=== PATIENT | female | born 1965 | race Caucasian/White ===

== ENCOUNTER 2018-03-20 13:05 | Inpatient (IN) | payer OTHER ==
[2018-03-20 13:10] VITALS: BMI 24.4
[2018-03-20] MEDS ORDERED: SODIUM CHLORIDE 1,000 ML IV SCH (14:15)
--- NOTE | 2018-03-20 14:20 | PDOC ---
History of Present Illness - General Chief Complaint: Head/Neck problem Stated Complaint: BITE Time Seen by Provider: 03/20/18 13:38 History Source: Patient, Family Exam Limitations: Language Barrier - History of Present Illness Initial Comments: 03/20/18 14:16 52F with PMH of diet controlled DM and HLD, not on any meds who presents to the ED from her doctor's office with concern for meningitis. About 2 weeks ago the patient noted a bug bite on her right side/abdominal area. Within a few days it progressed to a severe headache with head pressure associated with neck stiffness, tongue numbness, nausea, body aches and pains, and right sided large red rash. She denies photophobia. The patient's daughter explains on the way to the hospital the patient started to complain about a heavy left eye lid. During the HPI. I also noticed left facial droopiness and a code lambert was called. She denies fever (temp taken by daughter last night 99.6 oral) but endorses chills. She did not tell anyone in her family about her illness until yesterday. Her daughter does not see her too much because she works a lot. She denies recent travel or sick contacts. [place] near [place]ed areas. NIH Stroke Scale - Last Known Well Date/Time & Onset Date Last Known Well: 03/20/18 Time Last Known Well: 12:30 - Initial Evaluation Level of consciousness: Alert Ask patient the month and their age: Answers both correctly Ask patient to open & close eyes; make fist and let go: Obeys both correctly Best gaze (horizontal eye movement): Normal Visual field testing: No visual field loss Facial paresis (Show teeth/raise eyebrows/close eyes tight): Minor paralysis ( flattened nasolabial fold, asymmetry on smiling) Motor Function: Left Arm: Normal Motor Function: Right Arm: Normal (extends arm 90 (or 45) degrees for 10 seconds without drift Motor Function: Left Leg: Normal (extends leg 30 degrees for 5 seconds without drift) Motor Function: Right Leg: Normal (extends leg 30 degrees for 5 seconds without drift) Limb Ataxia: No ataxia Sensory(Use pinprick test arms,legs,trunk,face/side to side): Mild to moderate decrease in sensation Best language (Describe picture, name items, read sentences): No Aphasia Dysarthria (read several words): Normal articulation Extinction and Inattention: No abnormality - Total Score NIH Stroke Scale Score: 2 Past History - Travel Traveled outside of the country in the last 30 days: No Close contact w/someone who was outside of country & ill: No - Past Medical History Allergies/Adverse Reactions: Allergies Allergy/AdvReac Type Severity Reaction Status Date / Time No Known Allergies Allergy Verified 03/20/18 13:10 COPD: No Diabetes: Yes (type 2 diet controlled) Hypercholesterolemia: Yes (diet controlled) - Surgical History Abdominal Surgery: Yes (hysterectomy ) Orthopedic Surgery: Yes (left shoulder Sx) - Suicide/Smoking/Psychosocial Hx Smoking History: Never smoked Review of Systems - Review of Systems Able to Perform ROS?: Yes Comments:: 03/20/18 14:32 2 daughters present Is the patient limited Ukrainian proficient: No Constitutional: Yes: Chills, Diaphoresis (cold sweats). No: Fever, Unexplained wgt Loss Respiratory: No: Symptoms reported, See HPI, Cough, Orthopnea, Shortness of Breath, SOB with Exertion, SOB at Rest, Stridor, Wheezing, Productive cough, Hemoptysis, Other Cardiac (ROS): No: Symptoms Reported, See HPI, Chest Pain, Edema, Irregular Heart Rate, Lightheadedness, Palpitations, Syncope, Chest Tightness, Other ABD/GI: No: Symptoms Reported, See HPI, Abdominal Distended, Abd. Pain w/ defecation, Blood Streaked Bowels, Constipated, Diarrhea, Difficulty Swallowing , Nausea, Poor Appetite, Poor Fluid Intake, Rectal Bleeding, Vomiting, Indigestion, Abdominal cramping, Tarry Stools, Other : No: Symptoms Reported, See HPI, Burning, Dysuria, Discharge, Frequency, Flank Pain, Hematuria, Incontinence, Pain, Urgency, Testicular Mass, Testicular Swelling, Lesions, Testicular Pain, Other Musculoskeletal: Yes: Back Pain, Muscle Pain, Neck Pain (neck stiffness), Joint Stiffness Integumentary: Yes: Rash (right side/abdomen ) Neurological: Yes: Numbness (of the tongue), Other (left facial droopniess ) Psychiatric: No: Anxiety, Depression, Frequent Crying, Stressors, Sleep Pattern Change, Emotional Problems, Mood Swings, Change in Appetite, Other Endocrine: No: Symptoms Reported, See HPI, Excessive Sweating, Flushing, Intolerance to Cold, Intolerance to Heat, Increased Hunger, Increased Thirst, Increased Urine, Unexplained Weight Gain, Unexplained Weight Loss, Change in Weight, Other *Physical Exam - Vital Signs Last Vital Signs Temp Pulse Resp BP Pulse Ox 98.6 F 100 H 20 127/71 100 03/20/18 13:06 03/20/18 13:06 03/20/18 13:06 03/20/18 13:06 03/20/18 13:06 - Physical Exam General Appearance: Yes: Nourished, Appropriately Dressed, Mild Distress HEENT: positive: EOMI, ROSARIO, Other (left drroping eyelid) Neck: positive: Tender, Other (neck stiffness) Respiratory/Chest: positive: Lungs Clear, Normal Breath Sounds. negative: Accessory Muscle Use Cardiovascular: positive: Regular Rhythm, Regular Rate, S1, S2. negative: Murmur Gastrointestinal/Abdominal: positive: Soft Lymphatic: negative: Adenopathy Musculoskeletal: negative: CVA Tenderness Extremity: positive: Normal Capillary Refill, Normal Inspection Integumentary: positive: Dry, Rash (target lesionon left side/abdomen ) Neurologic: positive: Facial Droop (left), Other (see NIHSS section. left drooping eyelid. flattening of left nasolabial fold. sensation of left face and arm slightly decreased. negative kernig and brudsinksy signs. no photophobia) ED Treatment Course - LABORATORY CBC & Chemistry Diagram: 03/20/18 15:20 - RADIOLOGY Radiology Studies Ordered: Category Date Time Status HEAD CT (STROKE) [CT] Stat CT Scan 03/20/18 14:08 Ordered Medical Decision Making - Medical Decision Making 03/20/18 52F with PMH of DM2 and HLD presents with signs/symptoms of lyme disease, marcano' s palsy, and neck stiffness, concern for meningitis. Code lind called for concern for possible CVA event Head CT STAT CBC CMP Mg PT/INR Type and Screen EKG Echo ESR CRP Lyme Ab and PCR Babesia Anaplasma ehlirchia lipid panel lactic acid cardiac profile peripheral smear Blood cultures UA serum Will need LP and check for CSF profile and culture-Will need extra tube for CSF lyme Index (send out) Neurology consult ID consult 03/20/18 15:[address] reviewed with radiologist-negative 03/20/18 17:13 LP done patient tolerated procedure well. See procedure section for more information whole array of CSF testing done Labs reviewed Patient signed out to MODESTO Friedman who will follow up all ancillary studies and take over the care of the patient 2gm ceftriaxone daily and 100mg doxycycline BID ordered per ID *DC/Admit/Observation/Transfer Diagnosis at time of Disposition: Disseminated Lyme disease - Discharge Dispostion Condition at time of disposition: Guarded Decision to Admit order: Yes - Referrals Referrals: Alana Green MD [Primary Care Provider] - - Patient Instructions - Post Discharge Activity
[2018-03-20] MEDS ORDERED: ACETAMINOPHEN 1000 MG/100 ML VIAL (NON FORMULARY) IVPB ONE (15:13)
--- NOTE | 2018-03-20 15:27 | CON.NEURO ---
Consult Consult Specialty:: Sherri Referred by:: ED Reason for Consultation:: facial droop - History of Present Illness History of Present Illness: 52 Mexican speaking female DM Mild obesity Came in with facial droop Out of window for [place] in [place] rash headache and fever NIHS 0 - History Source History Provided By: Patient Limitations to Obtaining History: No Limitations - Smoking History Smoking history: Never smoked Home Medications - Allergies Allergies/Adverse Reactions: Allergies Allergy/AdvReac Type Severity Reaction Status Date / Time No Known Allergies Allergy Verified 03/20/18 13:10 Family Disease History - Family Disease History Family History: Unable to Obtain Review of Systems - Review of Systems Constitutional: reports: No Symptoms Eyes: reports: No Symptoms Neurological: reports: Headache, Incoordination Physical Exam-Neuro Vital Signs: Vital Signs Temperature 98.6 F 03/20/18 13:06 Pulse Rate 100 H 03/20/18 13:06 Respiratory Rate 20 03/20/18 13:06 Blood Pressure 127/71 03/20/18 13:06 O2 Sat by Pulse Oximetry (%) 100 03/20/18 13:06 Constitutional: Yes: Well Nourished Neck: Yes: WNL - Neuro Exam Level Of Consciousness: Yes: Oriented to Person, Oriented to Place, Oriented to Time Eyes: Yes: PERRLA Speech: WNL Dominant Hand: Right Cranial Nerves II-XII Intact: No (right facila droop LMN) DTR's: 1+ Left Bicep, 1+ Right Bicep, 1+ Left Tricep, 1+ Right Tricep Response to light touch: Abnormal Response to pain prick: Abnormal Response to temperature: Abnormal Motor Strength: 3/5: Left Arm, Right Arm, Left Leg, Right Leg Gait: Deferred NIH Stroke Scale - Initial Evaluation Level of consciousness: Alert Ask patient the month and their age: Answers both correctly Ask patient to open & close eyes; make fist and let go: Obeys both correctly Best gaze (horizontal eye movement): Normal Visual field testing: No visual field loss Facial paresis (Show teeth/raise eyebrows/close eyes tight): Partial paralysis ( total or near paralysis of lower face) Motor Function: Left Arm: Normal Motor Function: Right Arm: Normal (extends arm 90 (or 45) degrees for 10 seconds without drift Motor Function: Left Leg: Normal (extends leg 30 degrees for 5 seconds without drift) Motor Function: Right Leg: Normal (extends leg 30 degrees for 5 seconds without drift) (Facial; droop is periphral) Imaging - Results Cat Scan: Image Reviewed Problem List - Problems (1) Facial palsy Assessment/Plan: ?? bells with lyme ?? Yeoman with DM 1. NOT CVA 2. LP 3. ID 4. IV Abx 5. 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
--- NOTE | 2018-03-20 15:37 | PDOC ---
Attending Attestation - Resident Resident Name: Kenroy Almonte - ED Attending Attestation I have performed the following: I have examined & evaluated the patient, The case was reviewed & discussed with the resident, I agree w/resident's findings & plan, Exceptions are as noted - HPI HPI: 03/20/18 15:34 52 year old F c/ hx of DM, HLD presents with tactile fever, general malaise, and headache x 2 weeks. The patient states that had felt week. Soon developed a global headache, constant, nausea, but no vomiting. [place] lightheaded. Endorsed neck stiffness. Today, noted that she had a target like rash on the right abdomen. Pt seen her PMD who sent pt to the ER. Also endorses to me at 12:30 pm, started to feel a mild facial droop on left and numbness sensation on left. Seems to also involve the left forehead but very mild. Code lind was initiated. - Physicial Exam PE: 03/20/18 15:36 GENERAL: Awake, alert, and fully oriented, in no acute distress HEAD: No signs of trauma EYES: EOMI, sclera anicteric, conjunctiva clear ENT: Auricles normal inspection, hearing grossly normal, nares patent, Moist mucosa NECK: Normal ROM, supple LUNGS: Breath sounds equal, clear to auscultation bilaterally. No wheezes, and no crackles HEART: Regular rate and rhythm, normal S1 and S2, no murmurs, rubs or gallops ABDOMEN: Soft, nontender, No guarding, no rebound. No masses EXTREMITIES: Normal range of motion, no edema. No clubbing or cyanosis. No cords, erythema, or tenderness NEUROLOGICAL: Cranial nerves II through XII intact, except mild nasolabial flattening on left, decreased sensation of left face. 5/5 strength in upper and lower extremities. Sensation intact throughout. No pronator drift. No ataxia. Normal speech, normal gait SKIN: Large target like lesion on right abdomen - Medical Decision Making 03/20/18 15:37 Vital Signs Temp Pulse Resp BP Pulse Ox 98.6 F 100 H 20 127/71 100 03/20/18 13:06 03/20/18 13:06 03/20/18 13:06 03/20/18 13:06 03/20/18 13:06 I suspect that the patient likely has a tick-borne disease such as lymes, babesia, or ehrlichosis. Will need to r/o lymes meningitis. Dr. John (ID) consulted and had seen patient. Recommends 2g IV ceftriaxone and IV doxycyline. Will also send titers and obtain CSF fluid for lumbar puncture. Head CT reviewed with no acute findings. Dr. Timmons (neuro) consulted. I agree with his findings that this is not likely CVA. I suspect possibly early developing marcano's palsy 2/2 tick borne disease. Admit.
[2018-03-20 15:46] LABS: URINE APPEARANCE CLEAR; URINE BILIRUBIN NEGATIVE (<2.0 mg/dL); URINE COLOR YELLOW; URINE GLUCOSE (UA) NEGATIVE (NEGATIVE); URINE KETONE NEGATIVE (NEGATIVE); URINE LEUK ESTERASE NEGATIVE (NEGATIVE); URINE NITRITE NEGATIVE (NEGATIVE); URINE PROTEIN NEGATIVE (NEGATIVE); URINE UROBILINOGEN NEGATIVE mg/dL (0.2-1.0)
[2018-03-20] MEDS ORDERED: ACETAMINOPHEN INJECTION 100 ML IVPB ONE (15:46)
--- NOTE | 2018-03-20 16:01 | PDOC ---
NIH Stroke Scale - Last Known Well Date/Time & Onset Date Last Known Well: 03/20/18 Time Last Known Well: 12:30 - Initial Evaluation Level of consciousness: Alert Ask patient the month and their age: Answers both correctly Ask patient to open & close eyes; make fist and let go: Obeys both correctly Best gaze (horizontal eye movement): Normal Visual field testing: No visual field loss Facial paresis (Show teeth/raise eyebrows/close eyes tight): Minor paralysis ( flattened nasolabial fold, asymmetry on smiling) Motor Function: Left Arm: Normal Motor Function: Right Arm: Normal (extends arm 90 (or 45) degrees for 10 seconds without drift Motor Function: Left Leg: Normal (extends leg 30 degrees for 5 seconds without drift) Motor Function: Right Leg: Normal (extends leg 30 degrees for 5 seconds without drift) Limb Ataxia: No ataxia Sensory(Use pinprick test arms,legs,trunk,face/side to side): Mild to moderate decrease in sensation Best language (Describe picture, name items, read sentences): No Aphasia Dysarthria (read several words): Normal articulation Extinction and Inattention: No abnormality - Total Score NIH Stroke Scale Score: 2
[2018-03-20 16:09] LABS: INR 1.12 (0.83-1.09); PROTHROMBIN TIME (PATIENT) 12.7 SEC (9.7-13.0)
[2018-03-20 16:20] LABS: ALBUMIN 3.3 g/dl (3.4-5.0); ANION GAP 5 (8-16); BILIRUBIN,TOTAL 0.6 mg/dL (0.2-1.0); BLOOD UREA NITROGEN 13 mg/dL (7-18); CALCIUM 9.2 mg/dL (8.5-10.1); CHLORIDE 103 mmol/L (98-107); CHOLESTEROL 236 mg/dL (50-200); CO2 29 mmol/L (21-32); CREATININE 0.7 mg/dL (0.55-1.02); GLUCOSE,RANDOM 108 mg/dL (74-106); POTASSIUM 4.2 mmol/L (3.5-5.1); SGOT/AST 34 U/L (15-37); SGPT/ALT 95 U/L (12-78); SODIUM 137 mmol/L (136-145); TRIGLYCERIDES 283 mg/dL (35-160)
[2018-03-20 16:23] LABS: ALK PHOS 194 U/L (45-117); HDL CHOLESTEROL 41 mg/dL (40-60); TOT PROT 7.5 g/dl (6.4-8.2)
[2018-03-20] MEDS ORDERED: CEFTRIAXONE 2,000 MG in DEXTROSE 5%-WATER - 50 ML IVPB SCH (17:30)
[2018-03-20 17:42] LABS: GLUCOSE,CSF 66 mg/dL (50-80)
--- NOTE | 2018-03-20 17:58 | HP ---
Admitting History and Physical - Admission History of Present Illness: This is a 52 year old female with HLD, pre diabetes presented to the ED with 2 weeks of headache, increased worsening head pressure, stiff neck, numbness of tongue, body aches and a small red bite guru on her R stomach that has increased in size in the last 2 weeks and is itchy, not painful. Denies change in photophobia or subjective fevers . Pt did not tell her daughters until yesterday. Pt went to see PCP today and he sent her to the ED. In the ED pt noted to have increase left eye drooping. Code Ortiz was called, neuro evaluated no CVA. LP preformed Per ED noted: [place]. History Source: Patient Limitations to Obtaining History: No Limitations - Past Medical History Cardiovascular: Yes: Hyperlipdemia - Smoking History Smoking history: Never smoked - Alcohol/Substance Use History of Substance Use: reports: None - Social History Usual Living Arrangement: Yes: Alone ADL: Independent History of Recent Travel: No Home Medications - Allergies Allergies/Adverse Reactions: Allergies Allergy/AdvReac Type Severity Reaction Status Date / Time No Known Allergies Allergy Verified 03/20/18 13:10 Review of Systems - Review of Systems Constitutional: reports: Lethargy, Malaise Eyes: reports: No Symptoms HENT: reports: No Symptoms Neck: reports: No Symptoms Cardiovascular: reports: No Symptoms Respiratory: reports: No Symptoms Gastrointestinal: reports: No Symptoms Genitourinary: reports: No Symptoms Musculoskeletal: reports: No Symptoms Integumentary: reports: Erythema (stomach), Pruritis (stomach) Neurological: reports: Numbness (tongue), Parasthesia (Left upper and lower) Endocrine: reports: No Symptoms Hematology/Lymphatic: reports: No Symptoms Psychiatric: reports: No Symptoms Physical Examination Vital Signs: Vital Signs Temperature 98.6 F 03/20/18 13:06 Pulse Rate 100 H 03/20/18 13:06 Respiratory Rate 20 03/20/18 13:06 Blood Pressure 127/71 03/20/18 13:06 O2 Sat by Pulse Oximetry (%) 100 03/20/18 13:06 Constitutional: Yes: Well Nourished Eyes: Yes: Conjunctiva Clear HENT: Yes: Atraumatic Neck: Yes: Supple Cardiovascular: Yes: Regular Rate and Rhythm, S1, S2 Respiratory: Yes: Regular, CTA Bilaterally Gastrointestinal: Yes: Normal Bowel Sounds, Soft, Other (R sided red rash diffuse circular in shape) Breast(s): Yes: WNL Musculoskeletal: Yes: WNL Extremities: Yes: WNL Edema: No Peripheral Pulses WNL: Yes Integumentary: Yes: WNL Neurological: Yes: Alert, Oriented, Cran Nerves II-XII Intact, Loss of Sensation (4/5 left lower ext, face side face, left upper ext) Psychiatric: Yes: Alert, Oriented Labs: CBC, BMP 03/20/18 15:20 Imaging - Results Cat Scan: Report Reviewed Assessment/Plan Assessment: 52 year old female admitted with headache, stiff neck, and abdominal rash Plan: 1. Rule out tick born vs viral/bacterial meningitis - No fever, UA neg, cxr neg - Send lymes, babesia, or ehrlichosis - Start ceftriaxone 2gm, doxy 100mg BID - LP results pending - ESR elevated - ID aware, will follow 2. HLD - Cont statin 3. Elevated ALk phos - Will trend, liver? due to lyme? - INR elevated 4. DVT ppx - Lovenox sq Visit type - Emergency Visit Emergency Visit: Yes Care time: The patient presented to the Emergency Department on the above date and was hospitalized for further evaluation of their emergent condition. - New Patient This patient is new to me today: Yes Date on this admission: 03/20/18 - Critical Care Critical Care patient: No Hospitalist Screening - Colonoscopy Questionnaire Colonoscopy Questionnaire: Colonoscopy Questionnaire - Patient: 50 - 75 years old and never had a screening colonoscopy: Unknown History of colon or rectal polyps, or CA: Unknown History of IBD, Crohn's disease or UC: Unknown History of abdominal radiation therapy as a child: Unknown - Relative: 1 with colon or rectal CA, or polyps at age 60 or younger: Unknown Colon or rectal CA diagnosed at age 45 or younger: Unknown Multiple relatives with colon or rectal CA: Unknown - Outcome: Screening Result: Negative Screen
[2018-03-20 18:03] LABS: CSF APPEARANCE CLEAR; CSF COLOR COLORLESS; CSF WBC 4
[2018-03-20 18:04] LABS: CSF APPEARANCE CLEAR; CSF COLOR COLORLESS
[2018-03-20 18:06] LABS: CSF WBC 3
[2018-03-20] MEDS: SODIUM CHLORIDE 1,000 ML IV SCH (19:15)
[2018-03-20] MEDS: CEFTRIAXONE 2 GM in DEXTROSE 5%-WATER 100 ML IVPB SCH (19:15)
[2018-03-20] MEDS ORDERED: DOXYCYCLINE HYCLATE 100 MG VIAL ONE (19:32)
[2018-03-20] MEDS ORDERED: CEFTRIAXONE 2 GM/100 ML BAG IVPB ONE (19:35)
[2018-03-20] MEDS: DOXYCYCLINE INJECTION 100 MG in DEXTROSE 5%-WATER - 100 ML IVPB SCH (21:10)
--- NOTE | 2018-03-20 23:47 | HOSP ---
Subjective - Review of Symptoms Events since last encounter: Hospitalist Encounter Notified by RN that the patient's family reports pt having L- eye twitching and wanted the hospitalist to evaluate Arrived to bedside, patient on Isolation Precautions, family at bedside, see PE Assessment: 52 year old female admitted with headache, stiff neck, and abdominal rash LP- awaiting results Lyme serology-pending Plan: Continue current regimen Will continue to monitor HEENT: Yes: Other (eye tearing, twitching) Neurological: Yes: Numbness (tongue, face, L-side of body) Physical Examination Vital Signs: Vital Signs Temperature 97.9 F 03/20/18 20:45 Pulse Rate 87 03/20/18 20:45 Respiratory Rate 18 03/20/18 20:45 Blood Pressure 129/80 03/20/18 20:45 O2 Sat by Pulse Oximetry (%) 100 03/20/18 13:06 Constitutional: Yes: Well Nourished, No Distress, Calm Eyes: Yes: EOM Intact, Ptosis (left), Tearing (left) HENT: Yes: WNL, Atraumatic, Normocephalic Neck: Yes: Rigid Cardiovascular: Yes: WNL, Regular Rate and Rhythm, S1, S2 Respiratory: Yes: WNL, Regular, CTA Bilaterally Gastrointestinal: Yes: Normal Bowel Sounds, Soft, Other (Diifuse erythematous circular macular rash with "Bull's Eye") Breast(s): Yes: WNL Musculoskeletal: Yes: Joint Stiffness Extremities: Yes: WNL Edema: No Peripheral Pulses WNL: Yes Integumentary: Yes: Erythema, Rash Neurological: Yes: Alert, Oriented, Cran Nerves II-XII Intact (left 4/5), Loss of Sensation, Numbness, Paresthesia (left face, left extremities), Other (left eye droop) ...Motor Strength: LUE (4/5), LLE (4/5), RUE (5/5), RLE (5/5) Psychiatric: Yes: WNL, Alert, Oriented Labs: CBC, BMP 03/20/18 15:20 Laboratory Results - last 24 hr 03/20/18 03/20/18 03/20/18 15:20 15:20 15:20 WBC RBC Hgb Hct MCV MCH MCHC RDW Plt Count MPV Absolute Neuts (auto) Neutrophils % Lymphocytes % Monocytes % Eosinophils % Basophils % Nucleated RBC % ESR 78 H PT with INR 12.70 INR 1.12 H Sodium Potassium Chloride Carbon Dioxide Anion Gap BUN Creatinine Creat Clearance w eGFR Random Glucose Lactic Acid Calcium Total Bilirubin AST ALT Alkaline Phosphatase Creatine Kinase Troponin I C-Reactive Protein Total Protein Albumin Triglycerides Cholesterol Total LDL Cholesterol HDL Cholesterol Serum , Qual Urine Color Yellow Urine Appearance Clear Urine pH 7.0 Ur Specific [place] 1.017 Urine Protein Negative Urine Glucose (UA) Negative Urine Ketones Negative Urine Blood Negative Urine Nitrite Negative Urine Bilirubin Negative Urine Urobilinogen Negative Ur Leukocyte Esterase Negative CSF Appearance CSF Color CSF WBC CSF RBC CSF Neutrophils CSF Lymphocytes CSF Eosinophils CSF Basophils CSF Macrophages CSF Plasma Cells CSF Diff Comment CSF Comment CSF Glucose CSF Total Protein Blood Type Antibody Screen 03/20/18 03/20/18 03/20/18 15:20 15:20 15:20 WBC RBC Hgb Hct MCV MCH MCHC RDW Plt Count MPV Absolute Neuts (auto) Neutrophils % Lymphocytes % Monocytes % Eosinophils % Basophils % Nucleated RBC % ESR PT with INR INR Sodium 137 Potassium 4.2 Chloride 103 Carbon Dioxide 29 Anion Gap 5 L BUN 13 Creatinine 0.7 Creat Clearance w eGFR > 60 Random Glucose 108 H Lactic Acid Calcium 9.2 Total Bilirubin 0.6 AST 34 ALT 95 H Alkaline Phosphatase 194 H Creatine Kinase 25 L Troponin I < 0.02 C-Reactive Protein 5.2 H Total Protein 7.5 Albumin 3.3 L Triglycerides 283 H Cholesterol 236 H Total LDL Cholesterol 170 H HDL Cholesterol 41 Serum , Qual Negative Urine Color Urine Appearance Urine pH Ur Specific [place] Urine Protein Urine Glucose (UA) Urine Ketones Urine Blood Urine Nitrite Urine Bilirubin Urine Urobilinogen Ur Leukocyte Esterase CSF Appearance CSF Color CSF WBC CSF RBC CSF Neutrophils CSF Lymphocytes CSF Eosinophils CSF Basophils CSF Macrophages CSF Plasma Cells CSF Diff Comment CSF Comment CSF Glucose CSF Total Protein Blood Type O POSITIVE Antibody Screen Negative 03/20/18 03/20/18 03/20/18 15:20 16:30 16:30 WBC RBC Hgb Hct MCV MCH MCHC RDW Plt Count MPV Absolute Neuts (auto) Neutrophils % Lymphocytes % Monocytes % Eosinophils % Basophils % Nucleated RBC % ESR PT with INR INR Sodium Potassium Chloride Carbon Dioxide Anion Gap BUN Creatinine Creat Clearance w eGFR Random Glucose Lactic Acid 0.8 Calcium Total Bilirubin AST ALT Alkaline Phosphatase Creatine Kinase Troponin I C-Reactive Protein Total Protein Albumin Triglycerides Cholesterol Total LDL Cholesterol HDL Cholesterol Serum , Qual Urine Color Urine Appearance Urine pH Ur Specific [place] Urine Protein Urine Glucose (UA) Urine Ketones Urine Blood Urine Nitrite Urine Bilirubin Urine Urobilinogen Ur Leukocyte Esterase CSF Appearance Clear Clear CSF Color Colorless Colorless CSF WBC 4 3 CSF RBC 2 2 CSF Neutrophils No Result Required. No Result Required. CSF Lymphocytes No Result Required. No Result Required. CSF Eosinophils No Result Required. No Result Required. CSF Basophils No Result Required. No Result Required. CSF Macrophages No Result Required. No Result Required. CSF Plasma Cells No Result Required. No Result Required. CSF Diff Comment No Result Required. No Result Required. CSF Comment No Result Required. No Result Required. CSF Glucose 66 No Result Required. CSF Total Protein 37 No Result Required. Blood Type Antibody Screen 03/21/18 03/21/18 06:00 06:00 WBC 11.0 H RBC 3.87 Hgb 12.0 Hct 34.8 MCV 89.9 MCH 30.9 MCHC 34.3 RDW 13.4 Plt Count 481 H MPV 8.1 Absolute Neuts (auto) 8.1 Neutrophils % 73.1 Lymphocytes % 19.6 Monocytes % 5.2 Eosinophils % 1.7 Basophils % 0.4 Nucleated RBC % 0 ESR PT with INR INR Sodium 137 Potassium 4.7 Chloride 106 Carbon Dioxide 24 Anion Gap 7 L BUN 10 Creatinine 0.6 Creat Clearance w eGFR > 60 Random Glucose 152 H Lactic Acid Calcium 8.1 L Total Bilirubin 0.4 AST 22 ALT 69 Alkaline Phosphatase 162 H D Creatine Kinase Troponin I C-Reactive Protein Total Protein 6.8 Albumin 2.9 L Triglycerides Cholesterol Total LDL Cholesterol HDL Cholesterol Serum , Qual Urine Color Urine Appearance Urine pH Ur Specific [place] Urine Protein Urine Glucose (UA) Urine Ketones Urine Blood Urine Nitrite Urine Bilirubin Urine Urobilinogen Ur Leukocyte Esterase CSF Appearance CSF Color CSF WBC CSF RBC CSF Neutrophils CSF Lymphocytes CSF Eosinophils CSF Basophils CSF Macrophages CSF Plasma Cells CSF Diff Comment CSF Comment CSF Glucose CSF Total Protein Blood Type Antibody Screen Current Medications Generic Name Dose Route Start Last Admin Trade Name Freq PRN Reason Stop Dose Admin Acetaminophen 650 mg 03/20/18 18:34 03/21/18 05:23 Tylenol - PO 650 mg Q4H PRN Administration PAIN LEVEL 1 - 3 Enoxaparin Sodium 40 mg 03/21/18 10:00 Lovenox - SQ DAILY ROSARIO Doxycycline Hyclate 100 mg/ 100 mls @ 100 mls/hr 03/20/18 17:30 08/05/18 05: 23 Dextrose IVPB 100 mls/hr Q12H ROSARIO Administration Sodium Chloride 1,000 mls @ 75 mls/hr 03/20/18 18:37 03/20/18 19:15 Normal Saline - IV 75 mls/hr ASDIR ROSARIO Administration Ceftriaxone Sodium 2 gm/ 100 mls @ 200 mls/hr 03/20/18 18:45 03/20/18 19:15 Dextrose IVPB 200 mls/hr DAILY ROSARIO Administration
[2018-03-20] MEDS ORDERED: ACETAMINOPHEN 325 MG TABLET (FP) ONE (23:53)
[2018-03-21] MEDS: ACETAMINOPHEN 325 MG TABLET (FP) PO PRN (05:23)
[2018-03-21] MEDS: DOXYCYCLINE INJECTION 100 MG in DEXTROSE 5%-WATER - 100 ML IVPB SCH ×2 (05:23→19:15)
[2018-03-21 06:32] LABS: BASO % 0.4 % (0-2.0); EOS % 1.7 % (0-4.5); HEMATOCRIT 34.8 % (32.4-45.2); LYMPH % 19.6 % (8-40); MCH 30.9 pg (25.7-33.7); MCHC 34.3 g/dl (32.0-36.0); MEAN CELL VOLUME 89.9 fl (80-96); MEAN PLT VOLUME 8.1 fl (7.5-11.1); MONO % 5.2 % (3.8-10.2); NEUT % 73.1 % (42.8-82.8); PLATELET COUNT 481 K/MM3 (134-434); RBC 3.87 M/mm3 (3.60-5.2); RDW 13.4 % (11.6-15.6)
[2018-03-21 07:01] LABS: ALBUMIN 2.9 g/dl (3.4-5.0); ANION GAP 7 (8-16); BLOOD UREA NITROGEN 10 mg/dL (7-18); CALCIUM 8.1 mg/dL (8.5-10.1); CHLORIDE 106 mmol/L (98-107); CO2 24 mmol/L (21-32); GLUCOSE,RANDOM 152 mg/dL (74-106); POTASSIUM 4.7 mmol/L (3.5-5.1); SODIUM 137 mmol/L (136-145)
[2018-03-21 07:06] LABS: ALK PHOS 162 U/L (45-117); BILIRUBIN,TOTAL 0.4 mg/dL (0.2-1.0); CREATININE 0.6 mg/dL (0.55-1.02); SGOT/AST 22 U/L (15-37); SGPT/ALT 69 U/L (12-78); TOT PROT 6.8 g/dl (6.4-8.2)
[2018-03-21 08:58] LABS: PLATELET ESTIMATE INCREASED
--- NOTE | 2018-03-21 08:58 | EKG ---
Test Reason : Blood Pressure : / mmHG Vent. Rate : 085 BPM Atrial Rate : 085 BPM P-R Int : 174 ms QRS Dur : 074 ms QT Int : 356 ms P-R-T Axes : 055 019 029 degrees QTc Int : 423 ms NORMAL SINUS RHYTHM NORMAL ECG NO PREVIOUS ECGS AVAILABLE Confirmed by ESTELLE MCGRATH, KEE ([id number]) on 03/21/2018 8:58:12 AM Referred By: Confirmed By:KEE MCCABE MD
[2018-03-21] MEDS ORDERED: CEFTRIAXONE 2 GM in DEXTROSE 5%-WATER - 50 ML IVPB SCH (10:00)
[2018-03-21] MEDS ORDERED: CEFTRIAXONE 2 GM/100 ML BAG IVPB ONE (10:32)
[2018-03-21] MEDS: CEFTRIAXONE 2 GM in DEXTROSE 5%-WATER 100 ML IVPB SCH ×2 (10:33→21:00)
[2018-03-21] MEDS: ENOXAPARIN NA (PORCINE) 40 MG/0.4 ML DISP.SYRIN SQ SCH (10:33)
[2018-03-21] MEDS ORDERED: ACETAMINOPHEN INJECTION 100 ML IVPB ONE (11:30)
--- NOTE | 2018-03-21 12:17 | PROC ---
Lumbar Puncture Indication: possiblr meningitis Risks and Benefits Explained: Yes Consent on Chart: Yes Sterile Technique: Yes Skin prep: Chlorhexidine Position: Left lateral decubitus Site: L4-L51 Local Anesthesia: 1% Lidocaine with epi CSF Color, Appearance: Clear Sterile Dressing Applied: Yes Remarks: this is a delayed and is an addendum on my original chart while being cared for in the emergency department. procedure performed march 20, 2018 at approximately 1645
--- NOTE | 2018-03-21 15:19 | PN ---
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
--- NOTE | 2018-03-21 16:04 | CONS ---
INFECTIOUS DISEASE CONSULTATION DATE OF CONSULTATION: DATE OF DICTATION: 03/21/2018 HISTORY OF PRESENT ILLNESS: A 52-year-old diabetic female evaluated for Lyme disease. The patient and her family member report that approximately 2 weeks ago she began to develop a syndrome consisting of headaches, body aches, neck pain and stiffness as well as tongue numbness. She noted an annular rash present on her right abdomen on the day of presentation. She presented to the emergency room where she was noted to have a large annular rash on the right side of the abdomen. While in the emergency room she developed the onset of left facial paralysis. A Code Verduzco was called. A stat CAT scan of the head was performed and was negative. Because of her complaint of neck pain and stiffness a lumbar puncture was performed. She was found to have 3 white cells, 2 red cells, protein of 37 and a glucose of 66. She has had chills. She denies any fever. The patient has no recall for a tick bite. She denies removing a tick from her body. She does spend time outdoors and resides in [facility]. She has had subjective fever at home. She denies any ill contacts. No recent travel. PAST MEDICAL HISTORY: Positive for diabetes mellitus, hyperlipidemia. ALLERGIES: No known allergies. SOCIAL HISTORY: She is originally from [place]. She has been living in the [place] for the past 20 years. She denies tobacco, alcohol or illicit drugs. Her HIV status is not known. LABORATORY DATA: White count 11, 67 neutrophils, 22 lymphocytes, 4 monocytes. Hematocrit 34.8. Platelet count 481. BUN 10, creatinine 0.6. PHYSICAL EXAMINATION: General: She is in no acute distress. Vital Signs. Temperature 98.1, blood pressure 137/78, pulse 86, regular, respirations 18 per minute. HEENT: Sclerae are anicteric. Positive complete left facial palsy. Tongue is midline. Neck: Supple with some tenderness on flexion. Neck is not stiff. Heart Sounds: S1, S2. No murmur. Lungs: Clear. Abdomen: Soft, nontender. There is an annular rash present on the right abdomen. No central eschar is noted. Extremities: Negative for edema. Negative Homans sign. No other rash noted. IMPRESSION: 1. 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 3. Possible Lyme meningitis. 4. Doubt acute bacterial meningitis. PLAN: Obtain serologies for Lyme, Anaplasma PCR, peripheral smear for Babesia, Babesia PCR, spinal fluid analysis for Lyme antibodies, CSF Lyme index. Continue ceftriaxone at 2 g IV piggyback every 12 hours, doxycycline 100 mg IV piggyback every 12 hours. Will maintain isolation precautions for now pending spinal fluid culture. Case discussed with patient's family member present at the time of examination. Thank you for the kind referral. DOMINIC WALLACE M.D. [id number]
--- NOTE | 2018-03-21 16:58 | PN ---
Physical Exam: SUBJECTIVE: Patient seen and examined. Pt feels her face is very heavy, note rash on abd improved. Diminished sensory to Left side, no change from yesterday New left eye twitch, rapid movement and left facial droop OBJECTIVE: Vital Signs Period Temp Pulse Resp BP Sys/Padilla Pulse Ox Last 24 Hr 97.9 F-98.7 F 78-87 18-18 129-138/72-80 100-100 PE: Neuro: alert, awake, L eye twitching, L facial drop, unable to keep mouth closed 4/5 sensory Left side upper and lower ext Pulm: CTAB CV: s1 s2 rrr no mrg Abd: RLQ rash diminishing center lesion in tact + puritis Ext: no le edema SKIN: Warm, dry, normal turgor, no rashes or lesions noted Laboratory Results - last 24 hr 03/20/18 03/20/18 03/20/18 15:20 15:20 15:50 WBC RBC Hgb Hct MCV MCH MCHC RDW Plt Count MPV Absolute Neuts (auto) Total Counted Neutrophils % Neutrophils % (Manual) Band Neutrophils % Lymphocytes % Lymphocytes % (Manual) Monocytes % Monocytes % (Manual) Eosinophils % Eosinophils % (Manual) Basophils % Nucleated RBC % Metamyelocytes Platelet Estimate Platelet Comment ESR 78 H Sodium Potassium Chloride Carbon Dioxide Anion Gap BUN Creatinine Creat Clearance w eGFR Random Glucose Calcium Total Bilirubin AST ALT Alkaline Phosphatase Total Protein Albumin CSF Appearance CSF Color CSF WBC CSF RBC CSF Neutrophils CSF Lymphocytes CSF Eosinophils CSF Basophils CSF Macrophages CSF Plasma Cells CSF Diff Comment CSF Comment CSF Glucose CSF Total Protein CSF Lyme Disease DNA Cancelled Lyme DNA Comment Cancelled Blood Type O POSITIVE Antibody Screen Negative 03/20/18 03/20/18 03/21/18 16:30 16:30 06:00 WBC 11.0 H RBC 3.87 Hgb 12.0 Hct 34.8 MCV 89.9 MCH 30.9 MCHC 34.3 RDW 13.4 Plt Count 481 H MPV 8.1 Absolute Neuts (auto) 8.1 Total Counted 100 Neutrophils % 73.1 Neutrophils % (Manual) 67.0 Band Neutrophils % 3.0 Lymphocytes % 19.6 Lymphocytes % (Manual) 22.0 Monocytes % 5.2 Monocytes % (Manual) 4 Eosinophils % 1.7 Eosinophils % (Manual) 2.0 Basophils % 0.4 Nucleated RBC % 0 Metamyelocytes 2 Platelet Estimate Increased Platelet Comment No clumping noted ESR Sodium Potassium Chloride Carbon Dioxide Anion Gap BUN Creatinine Creat Clearance w eGFR Random Glucose Calcium Total Bilirubin AST ALT Alkaline Phosphatase Total Protein Albumin CSF Appearance Clear Clear CSF Color Colorless Colorless CSF WBC 4 3 CSF RBC 2 2 CSF Neutrophils No Result Required. No Result Required. CSF Lymphocytes No Result Required. No Result Required. CSF Eosinophils No Result Required. No Result Required. CSF Basophils No Result Required. No Result Required. CSF Macrophages No Result Required. No Result Required. CSF Plasma Cells No Result Required. No Result Required. CSF Diff Comment No Result Required. No Result Required. CSF Comment No Result Required. No Result Required. CSF Glucose 66 No Result Required. CSF Total Protein 37 No Result Required. CSF Lyme Disease DNA Lyme DNA Comment Blood Type Antibody Screen 03/21/18 06:00 WBC RBC Hgb Hct MCV MCH MCHC RDW Plt Count MPV Absolute Neuts (auto) Total Counted Neutrophils % Neutrophils % (Manual) Band Neutrophils % Lymphocytes % Lymphocytes % (Manual) Monocytes % Monocytes % (Manual) Eosinophils % Eosinophils % (Manual) Basophils % Nucleated RBC % Metamyelocytes Platelet Estimate Platelet Comment ESR Sodium 137 Potassium 4.7 Chloride 106 Carbon Dioxide 24 Anion Gap 7 L BUN 10 Creatinine 0.6 Creat Clearance w eGFR > 60 Random Glucose 152 H Calcium 8.1 L Total Bilirubin 0.4 AST 22 ALT 69 Alkaline Phosphatase 162 H D Total Protein 6.8 Albumin 2.9 L CSF Appearance CSF Color CSF WBC CSF RBC CSF Neutrophils CSF Lymphocytes CSF Eosinophils CSF Basophils CSF Macrophages CSF Plasma Cells CSF Diff Comment CSF Comment CSF Glucose CSF Total Protein CSF Lyme Disease DNA Lyme DNA Comment Blood Type Antibody Screen Active Medications Generic Name Dose Route Start Last Admin Trade Name Freq PRN Reason Stop Dose Admin Acetaminophen 650 mg 03/20/18 18:34 03/21/18 05:23 Tylenol - PO 650 mg Q4H PRN Administration PAIN LEVEL 1 - 3 Enoxaparin Sodium 40 mg 03/21/18 10:00 03/21/18 10:33 Lovenox - SQ 40 mg DAILY ROSARIO Administration Doxycycline Hyclate 100 mg/ 100 mls @ 100 mls/hr 03/20/18 17:30 03/21/18 05: 23 Dextrose IVPB 100 mls/hr Q12H ROSARIO Administration Sodium Chloride 1,000 mls @ 75 mls/hr 03/20/18 18:37 03/20/18 19:15 Normal Saline - IV 75 mls/hr ASDIR ROSARIO Administration Ceftriaxone Sodium 2 gm/ 100 mls @ 100 mls/hr 03/21/18 22:00 Dextrose IVPB BID [facility] Protocol Microbiology 03/20/18 15:20 Blood Culture - Preliminary Blood - Peripheral Venous NO GROWTH OBTAINED AFTER 24 HOURS, INCUBATION TO CONTINUE FOR 4 DAYS. 03/20/18 15:20 Blood Culture - Preliminary Blood - Peripheral Venous NO GROWTH OBTAINED AFTER 24 HOURS, INCUBATION TO CONTINUE FOR 4 DAYS. 03/20/18 15:50 Blood Parasites Smear - Final Blood - Peripheral Venous 03/20/18 16:30 Gram Stain - Preliminary Cerebral Spinal Fluid - Lumbar Puncture Assessment: 52 year old female admitted with headache, stiff neck, and abdominal rash Plan: 1. Rule out tick born vs viral/bacterial meningitis - Pending titers for lymes, babesia, or ehrlichosis - Continue ceftriaxone 2gm, doxy 100mg BID - Follow cytology 2. New left eye twitching/left facial droop - Continue IV doxy - Dw Neuro, further recs to follow 3. HLD - Cont statin 4. Elevated ALk phos - Down trending 5. DVT ppx - Lovenox sq Visit type - Emergency Visit Emergency Visit: Yes ED Registration Date: 03/20/18 Care time: The patient presented to the Emergency Department on the above date and was hospitalized for further evaluation of their emergent condition. - New Patient This patient is new to me today: No - Critical Care Critical Care patient: No
[2018-03-21] MEDS ORDERED: PT OWN MED DRAWER 7, Y5N ONE (17:39)
[2018-03-21] MEDS: SODIUM CHLORIDE 1,000 ML IV SCH ×2 (18:19→22:41)
[2018-03-21] MEDS ORDERED: DEXTROSE 5%-WATER 100 ML IVPB ONE (20:11)
[2018-03-22] MEDS: ACETAMINOPHEN 325 MG TABLET (FP) PO PRN ×2 (03:25→09:16)
[2018-03-22] MEDS: DOXYCYCLINE INJECTION 100 MG in DEXTROSE 5%-WATER - 100 ML IVPB SCH (05:17)
[2018-03-22] MEDS: SODIUM CHLORIDE 1,000 ML IV SCH (05:17)
[2018-03-22 06:41] LABS: BASO % 0.6 % (0-2.0); EOS % 2.9 % (0-4.5); HEMATOCRIT 35.9 % (32.4-45.2); HEMOGLOBIN 12.4 GM/dL (10.7-15.3); LYMPH % 25.2 % (8-40); MCH 30.9 pg (25.7-33.7); MCHC 34.6 g/dl (32.0-36.0); MEAN CELL VOLUME 89.3 fl (80-96); MEAN PLT VOLUME 7.5 fl (7.5-11.1); MONO % 6.9 % (3.8-10.2); NEUT % 64.4 % (42.8-82.8); PLATELET COUNT 461 K/MM3 (134-434); RBC 4.02 M/mm3 (3.60-5.2); RDW 13.6 % (11.6-15.6); WHITE BLOOD COUNT 10.3 K/mm3 (4.0-10.0)
[2018-03-22 07:04] LABS: ANION GAP 6 (8-16); BILIRUBIN,TOTAL 0.2 mg/dL (0.2-1.0); BLOOD UREA NITROGEN 8 mg/dL (7-18); CALCIUM 9.1 mg/dL (8.5-10.1); CHLORIDE 106 mmol/L (98-107); CO2 26 mmol/L (21-32); CREATININE 0.6 mg/dL (0.55-1.02); GLUCOSE,RANDOM 129 mg/dL (74-106); POTASSIUM 4.4 mmol/L (3.5-5.1); SGOT/AST 14 U/L (15-37); SGPT/ALT 55 U/L (12-78); SODIUM 138 mmol/L (136-145)
[2018-03-22 07:05] LABS: ALK PHOS 148 U/L (45-117)
[2018-03-22] MEDS ORDERED: DEXTROSE 5%-WATER 100 ML IVPB ONE (09:11)
[2018-03-22] MEDS: ENOXAPARIN NA (PORCINE) 40 MG/0.4 ML DISP.SYRIN SQ SCH (09:14)
[2018-03-22] MEDS: CEFTRIAXONE 2 GM in DEXTROSE 5%-WATER 100 ML IVPB SCH (09:14)
[2018-03-22] MEDS ORDERED: CYCLOBENZAPRINE HCL 10 MG TABLET (FP) PO PRN (10:08)
--- NOTE | 2018-03-22 11:36 | PN ---
Progress Note, Physician History of Present Illness: events noted and chart reviewed Seen on the medical floor with the daughter at the bedside Complains of mild headache with neck pain Still on the IV antibiotic Review the case with the nurse practitioner yesterday Patient is on isolation - Current Medication List Current Medications: Active Medications Acetaminophen (Tylenol -) 650 mg PO Q4H PRN PRN Reason: PAIN LEVEL 1 - 3 Last Admin: 03/22/18 09:16 Dose: 650 mg Cyclobenzaprine HCl (Flexeril -) 10 mg PO Q8H PRN PRN Reason: BACK PAIN Enoxaparin Sodium (Lovenox -) 40 mg SQ DAILY [facility] Last Admin: 03/22/18 09:14 Dose: 40 mg Doxycycline Hyclate 100 mg/ (Dextrose) 100 mls @ 100 mls/hr IVPB Q12H ROSARIO Last Admin: 03/22/18 05:17 Dose: 100 mls/hr Ceftriaxone Sodium 2 gm/ (Dextrose) 100 mls @ 100 mls/hr IVPB BID ROSARIO; Protocol Last Admin: 03/22/18 09:14 Dose: 100 mls/hr Sodium Chloride (Normal Saline -) 1,000 mls @ 50 mls/hr IV ASDIR ROSARIO Last Admin: 03/22/18 05:17 Dose: 50 mls/hr - Objective Vital Signs: Vital Signs Temperature 98.1 F 03/22/18 10:00 Pulse Rate 84 03/22/18 10:00 Respiratory Rate 18 03/22/18 10:00 Blood Pressure 152/87 03/22/18 10:00 O2 Sat by Pulse Oximetry (%) 97 03/21/18 21:00 Constitutional: Yes: Well Nourished Eyes: Yes: WNL Neurological: Yes: Alert, Oriented, Facial Droop ...Motor Strength: WNL Labs: CBC, BMP 03/22/18 05:30 03/22/18 05:30 INR, PTT INR 1.12 (0.83-1.09) H 03/20/18 15:20 Problem List - Problems (1) Facial palsy Assessment/Plan: CLAM GROWER Lyme Continue the antibiotic Eye patch tto the right eye Cyclobenzaprine for his neck pain DC isolation Fall precautions Code(s): G51.0 - BARTON'S PALSY
[2018-03-22 12:07] LABS: ANISOCYTOSIS 1+; MACROCYTOSIS 0; PLATELET ESTIMATE INCREASED
--- NOTE | 2018-03-22 15:29 | PN ---
Progress Note, Physician History of Present Illness: Feeling better No c/o H/A No fever/ chills L facial palsy better - Current Medication List Current Medications: Active Medications Acetaminophen (Tylenol -) 650 mg PO Q4H PRN PRN Reason: PAIN LEVEL 1 - 3 Last Admin: 03/22/18 09:16 Dose: 650 mg Cyclobenzaprine HCl (Flexeril -) 10 mg PO Q8H PRN PRN Reason: BACK PAIN Enoxaparin Sodium (Lovenox -) 40 mg SQ DAILY [facility] Last Admin: 03/22/18 09:14 Dose: 40 mg Doxycycline Hyclate 100 mg/ (Dextrose) 100 mls @ 100 mls/hr IVPB Q12H [facility] Last Admin: 03/22/18 05:17 Dose: 100 mls/hr Ceftriaxone Sodium 2 gm/ (Dextrose) 100 mls @ 100 mls/hr IVPB BID [facility]; Protocol Last Admin: 03/22/18 09:14 Dose: 100 mls/hr Sodium Chloride (Normal Saline -) 1,000 mls @ 50 mls/hr IV ASDIR [facility] Last Admin: 03/22/18 05:17 Dose: 50 mls/hr - Objective Vital Signs: Vital Signs Temperature 98.1 F 03/22/18 10:00 Pulse Rate 84 03/22/18 10:00 Respiratory Rate 18 03/22/18 10:00 Blood Pressure 152/87 03/22/18 10:00 O2 Sat by Pulse Oximetry (%) 97 03/22/18 09:00 Constitutional: Yes: No Distress HENT: Yes: Other (+ L facial palsy) Cardiovascular: Yes: Regular Rate and Rhythm, S1, S2 Respiratory: Yes: CTA Bilaterally Gastrointestinal: Yes: Normal Bowel Sounds, Soft. 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
--- NOTE | 2018-03-22 15:35 | ECHO ---
Name: BLADIMIR GOMEZ Exam:Adult Echocardiogram Study Date: 03/22/2018 12:20 PM Age: 52 yrs Reason For Study: r/ocva/tia/stroke Height: 59 in Weight: 121 lb BSA: 1.5 m2 MMode/2D Measurements & Calculations IVSd: 0.95 cm Ao root diam: 2.6 cm LVIDd: 3.6 cm LA dimension: 2.7 cm LVIDs: 2.5 cm LVPWd: 0.79 cm LVPWs: 1.0 cm EDV(Teich): 56.1 ml ESV(Teich): 21.5 ml Doppler Measurements & Calculations MV E max ab: 62.5 cm/sec Ao V2 max: 128.5 cm/sec MV A max ab: 82.8 cm/sec Ao max P.6 mmHg MV E/A: 0.75 MV dec time: 0.10 sec LV V1 max P.2 mmHg Med Peak E' Ab: 7.6 cm/sec LV V1 max: 102.5 cm/sec Med E/e': 8.3 Lat Peak E' Ab: 11.3 cm/sec Lat E/e': 5.5 Procedure The study was technically adequate with some images being suboptimal in quality. Left Ventricle The left ventricle is normal in size. Left ventricular systolic function is normal. Ejection Fraction = 65- 70%. No regional wall motion abnormalities noted. Right Ventricle The right ventricle is normal size. The right ventricular systolic function is normal. RV systolic TD I is 15 cm/s. Atria The left atrial size is normal. Right atrial size is normal. Mitral Valve The mitral valve is normal in structure and function. There is no mitral regurgitation noted. Tricuspid Valve The tricuspid valve is normal in structure and function. No tricuspid regurgitation. Aortic Valve There is mild aortic sclerosis.;. No aortic regurgitation is present. Pulmonic Valve The pulmonic valve is not well visualized. Great Vessels The aortic root is normal size. Pericardium/Pleura There is no pericardial effusion. Interpretation Summary The left ventricle is normal in size. Left ventricular systolic function is normal. No regional wall motion abnormalities noted. Ejection Fraction = 65-70%. The right ventricular systolic function is normal. The left atrial size is normal. Right atrial size is normal. RV systolic TDI is 15 cm/s There is mild aortic sclerosis.; There is no pericardial effusion. Previous study is not available for comparison Sang H Sanjuana, MD 03/22/2018 03:34 PM
--- NOTE | 2018-03-22 15:39 | DS ---
Physical Exam: SUBJECTIVE: Patient seen and examined OBJECTIVE: Vital Signs Period Temp Pulse Resp BP Sys/Padilla Pulse Ox Last 24 Hr 98.0 F-98.8 F 72-95 18-18 125-163/74-99 97-97 PHYSICAL EXAM Neuro: alert, awake, L eye twitching, L facial drop, unable to keep mouth closed 4/5 sensory Left side upper and lower ext Pulm: CTAB CV: s1 s2 rrr no mrg Abd: RLQ rash diminishing center lesion in tact + puritis Ext: no le edema SKIN: Warm, dry, normal turgor, no rashes or lesions noted Laboratory Results - last 24 hr 03/22/18 03/22/18 05:30 05:30 WBC 10.3 H RBC 4.02 Hgb 12.4 Hct 35.9 MCV 89.3 MCH 30.9 MCHC 34.6 RDW 13.6 Plt Count 461 H MPV 7.5 Absolute Neuts (auto) 6.6 Neutrophils % 64.4 Neutrophils % (Manual) 73.5 Band Neutrophils % 0.0 Lymphocytes % 25.2 D Lymphocytes % (Manual) 14.3 D Monocytes % 6.9 Monocytes % (Manual) 6 Eosinophils % 2.9 Eosinophils % (Manual) 4.1 D Basophils % 0.6 Basophils % (Manual) 0.0 Myelocytes % (Man) 0 Promyelocytes % (Man) 0 Blast Cells % (Manual) 0 Nucleated RBC % 0 Metamyelocytes 2 Hypochromia 0 Platelet Estimate Increased Polychromasia 1+ Poikilocytosis 0 Anisocytosis 1+ Microcytosis 1+ Macrocytosis 0 Sodium 138 Potassium 4.4 Chloride 106 Carbon Dioxide 26 Anion Gap 6 L BUN 8 Creatinine 0.6 Creat Clearance w eGFR > 60 Random Glucose 129 H Calcium 9.1 Total Bilirubin 0.2 AST 14 L ALT 55 Alkaline Phosphatase 148 H D Total Protein 7.0 Albumin 3.0 L HOSPITAL COURSE: Microbiology Date of Admission:03/20/18 Date of Discharge: 03/22/18 52 year old female admitted with headache, stiff neck, and abdominal rash 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 You will take this medication for the next 26 days. You should follow up with your PCP Dr. Garcia within one week. You should also follow up with neurologist Dr. Polanco within one week. His contact information is enclosed. Return to the emergency department for any new or worsening symptoms. Referrals: Ray Polanco MD [Staff Physician] - 1 Week Alana Green MD [Primary Care Provider] - 1 Week Disposition: HOME - Home Medications Comprehensive Discharge Medication List: Ambulatory Orders Doxycycline Hyclate 100 mg PO BID #52 capsule 03/22/18 This patient is new to me today: Yes Date on this admission: 04/02/18 Emergency Visit: Yes ED Registration Date: 03/20/18 Care time: The patient presented to the Emergency Department on the above date and was hospitalized for further evaluation of their emergent condition. Critical Care patient: No - Discharge Referral Referred to [facility] No
[2018-03-22 16:06] VITALS: BP 148/91; PULSE 81; TEMP 98.2
[2018-03-23 14:15] LABS: IgG Ab 23 kDa Band Absent (.); IgG Ab 28 kDa Band Absent (.)
[2018-03-25 00:07] LABS: BABESIA MICROTI ANTIBODY IGG <1:10 (Neg:<1:10); BABESIA MICROTI ANTIBODY IGM <1:10 (Neg:<1:10); E. chaff IgG Negative (Neg:<1:64)
== END 2018-03-22 16:32 | disposition home or self-care (01) | DRG 724 ==
LOC: JER 13:05 → JERBED 19:27 → J5S 03-21 13:55
PROVIDERS: ADMIT Hospitalist; ATTEND Nurse Practitioner Acute Care
PROC: 009U3ZZ Drainage of Spinal Canal, Percutaneous Approach (ICD-10-PCS; principal; 2018-03-20)
DX: A69.20 Lyme disease, unspecified (principal); E78.5 Hyperlipidemia, unspecified; E11.9 Type 2 diabetes mellitus without complications; G51.0 Bell's palsy; E66.9 Obesity, unspecified; R29.702 NIHSS score 2; Z68.24 Body mass index [BMI] 24.0-24.9, adult; R50.9 Fever, unspecified
CPT/HCPCS: 36415; 70450-TC; 80053; 81003; 82465; 82550; 82930; 82945; 83605; 83718; 83721; 84157; 84478; 84484; 84703; 85025; 85610; 85651; 86140; 86617; 86618; 86666; 86753; 86850; 86900; 86901; 87040; 87070; 87205; 87207; 87476; 87798; 93005; 93010; 93306-TC; 97116-GP; 97161-GP; 99285-25; J0131; J7030

== ENCOUNTER 2019-02-06 14:17 | Inpatient (IN) | payer OTHER | END 2019-02-08 10:46 | disposition home or self-care (01) | LOC: JER 14:17 → JERBED 15:51 → J4S 21:48 ==